=== PATIENT | female | born 1990 | race Two or more races ===

== ENCOUNTER 2019-09-12 13:45 | Emergency (ER) | payer MEDICAID ==
[~2019-09-12] VITALS: Ht 152.4 cm; Wt 62.6 kg
[2019-09-12 13:48] VITALS: BP 111/69
--- NOTE | 2019-09-12 14:13 | NUR ---
ania ortho/prosthetic aide at bedside for eval.
[2019-09-12 14:29] LABS: BASOPHILS % (AUTO) 0.6 % (0.0-2.0); EOSINOPHILS % (AUTO) 0.6 % (0.0-6.0); HEMATOCRIT 37 % (33-45); HEMOGLOBIN 12.6 g/dL (11.5-14.8); MEAN CORPUSCULAR HGB CONC 34 g/dl (31.0-36.0); MEAN CORPUSCULAR VOLUME 92 fL (82-100); MONOCYTES # (AUTO) 0.8 /CMM (0.1-1.30); MONOCYTES % (AUTO) 10.5 % (2.0-12.0); NEUTROPHILS # (AUTO) 4.5 /CMM (1.8-8.9); NEUTROPHILS % (AUTO) 61.3 % (43.0-81.0); PLATELET COUNT (AUTO) 238 /CMM (150-450); RED BLOOD CELL COUNT(AUTO) 4.03 MIL/uL (4.0-5.2); WHITE BLOOD COUNT (AUTO) 7.4 K/uL (4.3-11.0)
[2019-09-12 14:30] LABS: APPEARANCE,URINE Clear (CLEAR); BILIRUBIN,URINE Negative (NEGATIVE); BLOOD, URINE Negative Ery/uL (NEGATIVE); COLOR,URINE Yellow (YELLOW); KETONES,URINE Negative (NEGATIVE); LEUKOCYTE ESTERASE ,URINE Negative (NEGATIVE); NITRITE, URINE Negative (NEGATIVE); PH,URINE 5.5 (5.0-8.0); PROTEIN,URINE Negative (NEGATIVE); UGLUCOSE Negative (NEGATIVE); UROBILINOGEN,URINE 0.2 EU/dL (0.2)
[2019-09-12 14:40] LABS: CALCIUM, SERUM 9.3 mg/dL (8.5-10.1); CREATININE 0.6 mg/dL (0.6-1.3); POTASSIUM 3.8 mmol/L (3.5-5.1)
--- NOTE | 2019-09-12 15:17 | NUR ---
CALL FROM BLOOD BANK,RH (+), NOT A CANDIDATE FOR [facility], DR BRYAN AWARE
--- NOTE | 2019-09-12 17:07 | NUR ---
PT LEFT WITHOUT SIGNING. SPOKE TO PT AND WAS TOLD TO WAIT FOR DISCHARGE PAPERS. BY THE TIME I HAD RECIEVED THE DISCHARGE PAPERS, THE PT HAD LEFT.
== END 2019-09-12 17:09 | disposition home or self-care (01) ==
LOC: ER 13:45
DX: O20.0 Threatened abortion (principal); Z3A.01 Less than 8 weeks gestation of pregnancy
CPT/HCPCS: 36415; 76856-TC; 80048-TC; 81000-TC; 84702-TC; 85025-TC; 85730-TC